=== PATIENT | male | born 1955 | race Caucasian/White ===

== ENCOUNTER 2018-02-05 14:09 | Emergency (ER) | payer BC ==
[2018-02-05 15:11] LABS: BASOPHILS % (AUTO) 0.4 %; EOSINOPHILS # (AUTO) 0.1 10^3/uL (0.0-0.7); EOSINOPHILS % (AUTO) 0.9 %; LYMPHOCYTES # (AUTO) 2.8 10^3/uL (1.5-3.5); LYMPHOCYTES % (AUTO) 34.4 %; MEAN CORPUSCULAR HEMOGLOBIN 32.3 pg (27.0-31.0); MEAN CORPUSCULAR HGB CONC 34.8 g/dL (32.0-36.0); MEAN CORPUSCULAR VOLUME 92.7 fL (80.0-94.0); MEAN PLATELET VOLUME 8.7 fL (7.4-11.4); MONOCYTES # (AUTO) 0.6 10^3/uL (0.0-1.0); MONOCYTES % (AUTO) 7.8 %; NEUTROPHILS # (AUTO) 4.6 10^3/uL (1.5-6.6); NEUTROPHILS % (AUTO) 56.5 %; PLT - PLATELET COUNT 264 10^3/uL (130-450); RED BLOOD COUNT 4.95 10^6/uL (4.70-6.10); RED CELL DISTRIBUTION WIDTH 12.4 % (12.0-15.0); WHITE BLOOD COUNT 8.2 x10^3/uL (4.8-10.8)
[2018-02-05 15:20] LABS: CALCIUM 9.5 mg/dL (8.5-10.3); CREATININE 0.8 mg/dL (0.6-1.2)
[2018-02-05] MEDS ORDERED: IOVERSOL 320 100 ML VIAL IVP ONE ×3 (15:22→16:03)
--- NOTE | 2018-02-05 16:27 | ED Physician Documentation ---
History of Present Illness - Stated complaint Stated Complaint: ABCESS IN MOUTH - Chief complaint Chief Complaint: Heent - History obtained from History obtained from: Patient - Additonal information Additional information: 62-year-old male presents the emergency department with increasing dental pain over the past several days. The patient's noticed increased swelling and discomfort in his right upper jaw. The patient denies tongue swelling or throat swelling or difficulty swallowing. No reports of fever. Symptoms are described as moderate. The patient was started on amoxicillin by his dentist in [place] but he has had no relief. No other associated symptoms. No triggering factors. Review of Systems Constitutional: denies: Fever, Chills Eyes: denies: Discharge Ears: denies: Ear pain Nose: denies: Congestion Throat: reports: Dental pain / toothache. denies: Sore throat, Swollen tonsils Cardiac: denies: Chest pain / pressure Respiratory: denies: Cough GI: denies: Abdominal Pain : denies: Dysuria Skin: denies: Rash Musculoskeletal: denies: Neck pain Immunocompromised: reports: HIV/AIDS PD PAST MEDICAL HISTORY - Past Medical History Past Medical History: Yes Cardiovascular: Hypertension - Past Surgical History Past Surgical History: No - Present Medications Home Medications: Ambulatory Orders Medication Instructions Recorded Confirmed Acyclovir 1 tab PO DAILY 02/05/18 02/05/18 Amoxicillin 1 cap PO TID 02/05/18 02/05/18 Atorvastatin [Lipitor] 1 tab PO DAILY 02/05/18 02/05/18 Cholecalciferol (Vitamin D3) 1 cap PO DAILY 02/05/18 02/05/18 [Vitamin D3] Emtricitab/Rilpiviri/Tenof Ala 1 tab PO DAILY 02/05/18 02/05/18 [Odefsey Tablet] - Allergies Allergies/Adverse Reactions: Allergies Allergy/AdvReac Type Severity Reaction Status Date / Time Sulfa (Sulfonamide Allergy Anaphylaxis Verified 02/05/18 14:37 Antibiotics) - Social History Does the pt smoke?: No Smoking Status: Never smoker Does the pt drink ETOH?: No Does the pt have substance abuse?: No - Immunizations Immunizations are current?: Yes PD ED PE NORMAL - General General: Alert and oriented X 3, No acute distress - HEENT HEENT: Atraumatic, PERRL, EOMI - Cardiac Cardiac: RRR - Respiratory Respiratory: No respiratory distress - Abdomen Abdomen: Soft - Extremities Extremities: No deformity - Neuro Neuro: Alert and oriented X 3, Normal speech - Psych Psych: Normal mood PD ED PE EXPANDED - HEENT HEENT Visual: 1 - abscess (Significant gingival swelling, inflammation and cellulitis no active drainage) Results - Vitals Vitals: Vital Signs - 24 hr 02/05/18 14:13 Temperature 36.2 C L Heart Rate 76 Respiratory 16 Rate Blood Pressure 143/100 H O2 Saturation 98 Oxygen O2 Source Room air - Labs Labs: Laboratory Tests 02/05/18 02/05/18 15:00 15:00 WBC 8.2 RBC 4.95 Hgb 16.0 Hct 45.9 MCV 92.7 MCH 32.3 H MCHC 34.8 RDW 12.4 Plt Count 264 MPV 8.7 Neut # (Auto) 4.6 Lymph # (Auto) 2.8 [place] # (Auto) 0.6 Eos # (Auto) 0.1 Baso # (Auto) 0.0 Absolute Nucleated RBC 0.00 Nucleated RBC % 0.0 Sodium 135 Potassium 4.2 Chloride 102 Carbon Dioxide 27 Anion Gap 6.0 BUN 16 Creatinine 0.8 Estimated GFR (MDRD) 98 Glucose 97 Calcium 9.5 - Rads (name of study) CT face Radiology: Final report received (IMPRESSION: 1. There is a peripherally enhancing fluid collection, likely representing a soft tissue abscess in the right buccal space adjacent to right maxillary alveolar ridge measuring 25 x 10 x 20 mm (transverse by craniocaudal) (series 4 image 62, series 6 image 32). 2. There is overlyingsoft tissue swelling and inflammatory change was likely represent soft tissue cellulitis. 3. The abscess is likely odontogenic as there are adjacent teeth with periapical lucencies (for example series 7 image 106) which may represent periapical abscesses. 4. Moderate mucosal thickening bilateral maxillary sinuses. Correlate clinically for sinusitis. ) Procedures - Abscess I&D (location) Other right Preparation: Lidocaine 1% Incision: Needle aspiration, Purulent drainage Other: Pt tolerated well, Other (The patient has a right maxillary abscess, the area was numbed with 1% lidocaine. An 18-gauge needle was inserted and a significant amount of purulent material was drained) PD MEDICAL DECISION MAKING - ED course ED course: The patient had a bedside incision and drainage of a maxillary abscess. The case was discussed with the on-call OMFS at [facility], since the abscess has been drained they agree with the plan for follow-up tomorrow for definitive management of the infected tooth. On reevaluation the patient resting comfortably, there is no evidence of sepsis or facial cellulitis and the patient had significant improvement after incision and drainage. The patient will continue on the amoxicillin and will follow up tomorrow with OMFS. I discussed with the patient warning signs and recommended returning to the emergency department immediately for any worsening or any concerns. Departure - Departure Disposition: 01 Home, Self Care Clinical Impression: Dental abscess Condition: Good Instructions: ED Abscess Dental Comments: Please call the OMFS clinic at [facility] first thing in the morning. Their number is [phone] Please return to the emergency department immediately for any worsening or any concerns
--- NOTE | 2018-02-05 16:36 | CT Report ---
Reason: facial swelling Procedure Date: 02/05/2018 Accession Number: [id number] / [id number] Procedure: CT - Facial Bones W/ CPT Code: FULL RESULT: EXAM: CT MAXILLOFACIAL WITH CONTRAST EXAM DATE: 02/05/2018 04:04 PM. CLINICAL HISTORY: 62-year-old male. Facial swelling. COMPARISONS: None. TECHNIQUE: Thin-section axial images were acquired of the face after administration of intravenous contrast. Post-processing: Coronal and sagittal reformats. Other: None. IV contrast: 80 cc Optiray 320. In accordance with CT protocol optimization, one or more of the following dose reduction techniques were utilized for this exam: automated exposure control, adjustment of mA and/or KV based on patient size, or use of iterative reconstructive technique. FINDINGS: Soft Tissue: There is a peripherally enhancing fluid collection, likely representing a soft tissue abscess in the right buccal space adjacent to right maxillary alveolar ridge measuring 25 x 10 x 20 mm (transverse by craniocaudal) (series 4 image 62, series 6 image 32). There is overlying soft tissue swelling and inflammatory change was likely represent soft tissue cellulitis. This may be odontogenic as there are adjacent teeth with periapical lucencies (for example series 7 image 106) which may represent periapical abscesses. The infratemporal fossa and parapharyngeal spaces are unremarkable. Orbits:Symmetric and unremarkable. Bones: No fracture or bone lesion. Temporomandibular Joints: The temporomandibular joints are symmetric and normally located. Sinuses: Moderate mucosal thickening bilateral maxillary sinuses. The remaining paranasal sinuses are clear. Glands: The parotid and submandibular glands are unremarkable. Other: None. IMPRESSION: 1. There is a peripherally enhancing fluid collection, likely representing a soft tissue abscess in the right buccal space adjacent to right maxillary alveolar ridge measuring 25 x 10 x 20 mm (transverse by craniocaudal) (series 4 image 62, series 6 image 32). 2. There is overlying soft tissue swelling and inflammatory change was likely represent soft tissue cellulitis. 3. The abscess is likely odontogenic as there are adjacent teeth with periapical lucencies (for example series 7 image 106) which may represent periapical abscesses. 4. Moderate mucosal thickening bilateral maxillary sinuses. Correlate clinically for sinusitis. RADIA The above findings were discussed with Rodney Leon by Dr. Breonna Douglas at 16:32 hrs on 02/05/18.
[2018-02-05] MEDS ORDERED: fentaNYL 100 MCG/2 ML VIAL IVP STA (17:08)
[2018-02-05] MEDS ORDERED: KETOROLAC 15 MG/ML VIAL IVP STA (17:08)
[2018-02-05] MEDS ORDERED: BUFFERED LIDOCAINE 10 ML SYRINGE SUBQ STA (17:09)
[2018-02-05 19:17] VITALS: BP 144/100
== END 2018-02-05 17:57 | disposition home or self-care (01) ==
LOC: ED 14:09
DX: K04.7 Periapical abscess without sinus (principal); I10 Essential (primary) hypertension; Z21 Asymptomatic human immunodeficiency virus [HIV] infection status
CPT/HCPCS: 36415; 41800; 70487; 80048; 85025; 96374; 99283; Q9967